=== PATIENT | female | born 1990 | race Caucasian/White ===

== ENCOUNTER 2017-01-17 19:50 | Emergency (ER) | payer MEDICAID, OTHER ==
[~2017-01-17] VITALS: Wt 68.5 kg
[~2017-01-17 19:50] MED LIST: DENIES; PREN1TAB49 BC
--- NOTE | 2017-01-17 21:33 | ERA ---
ER Documentation Chief Complaint Date/Time DATE: 01/17/17 TIME: 21:32 Chief Complaint Body malaise since this morning with chills and nausea HPI 26-year-old female presenting with a chief complaint of dysuria back pain. Patient has been generally feeling unwell for the past 1 day. Patient also complains of chills and mild nausea. Patient denies vomiting, constipation, diarrhea, hematuria, vaginal discharge. Patient has not taken any medications to relieve the symptoms. ROS All systems reviewed and are negative except as per history of present illness. Medications Home Meds Reported Medications Vits W-Ca,Fe,Fa(<1MG) () 1 Tab Tablet, 1 BC 11/14/11 [Denies] No Conflict Check 02/21/11 Allergies Allergies: Coded Allergies: No Known Drug Allergies (Verified Allergy, Mild, 02/21/11) PMhx/Soc History of Surgery: No Anesthesia Reaction: No Hx Neurological Disorder: No Hx Respiratory Disorders: No Hx Cardiac Disorders: No Hx Psychiatric Problems: No Hx Miscellaneous Medical Probl: No Hx Alcohol Use: No Hx Substance Use: No Hx Tobacco Use: No Smoking Status: Never smoker Physical Exam Vitals Vital Signs Date Time Temp Pulse Resp B/P Pulse Ox O2 Delivery O2 Flow Rate FiO2 01/17/17 20:02 100.5 83 20 104/63 98 Physical Exam Const: Well-appearing 26-year-old female Head: Atraumatic Eyes: Normal Conjunctiva ENT: Normal External Ears, Nose and Mouth. Neck: Full range of motion..~ No meningismus. Resp: Clear to auscultation bilaterally Cardio: Regular rate and rhythm, no murmurs Abd: Soft, non tender, non distended. Normal bowel sounds Skin: No petechiae or rashes Back: Mild right-sided CVA tenderness. No midline or flank tenderness Ext: No cyanosis, or edema Neur: Awake and alert Psych: Normal Mood and Affect Results 24 hrs Laboratory Tests Test 01/17/17 21:45 Bedside Urine pH (LAB) 5.0 Bedside Urine Protein (LAB) Negative Bedside Urine Glucose (UA) Negative Bedside Urine Ketones (LAB) Negative Bedside Urine Blood Negative Bedside Urine Nitrite (LAB) Positive Bedside Urine Leukocyte Esterase (L Negative Procedures/MDM Patient is seen for general malaise and chills. Patient also complained of slight back pain on the right side. Patient had a urine dip done which was positive for nitrates. My most likely diagnosis at this time is a lower urinary tract infection. At this time I have little suspicion for pyelonephritis. Patient has been instructed on warning signs and will be given discharge instructions with return precautions. Patient's vitals are stable and appearance is appropriate for discharge. Departure Diagnosis: Primary Impression: Urinary tract infection Qualified Code: N34.2 - Infective urethritis Condition: Stable Additional Instructions: Follow up with your PCP within the next 1-3 days for a more thorough evaluation and a possible referral to a specialist. Return the the emergency department immediately if symptoms worsen or change. If you have any questions regarding medications, ask your pharmacist or us before you leave. If any adverse reactions occur while taking your medications, discontinue the treatment and return to the emergency department immediately. Take your medications as directed, and complete the entire course of treatment. ROYCE BLACKMON PA-C January 17, 2017 21:33
[2017-01-17 21:43] LABS: URINE BLOOD (Dip) POC Negative (NEGATIVE)
[2017-01-17] MEDS ORDERED: ONDANSETRON (ODT) 4 MG TAB ODT STA (21:56)
[2017-01-17] MEDS ORDERED: CEPH-443 PO (21:59)
== END 2017-01-17 22:05 | disposition home or self-care (01) ==
LOC: FTE 19:50
DX: N34.2 Other urethritis (principal); R11.0 Nausea
CPT/HCPCS: 81003; Z7502; Z7610; 99283

== ENCOUNTER 2017-08-22 23:33 | Emergency (ER) | payer MEDICAID, OTHER ==
[~2017-08-22] VITALS: Ht 172.7 cm; Wt 80.0 kg
[~2017-08-22 23:33] MED LIST changes: +CEPH-443 PO
[2017-08-22 23:35] VITALS: Ht 172.7 cm; Wt 80.0 kg
--- NOTE | 2017-08-23 01:34 | ERD ---
ER Documentation Chief Complaint Chief Complaint Pelvic pain, no vag bleed HPI 26-year-old female presents here to emergency department for complaints of pelvic pain that started 4 days ago, more constant and worse today. Patient describes the pain as cramping pain, 4/10 scale, not better or worst with anything. Patient is 3 para 2 0. Patient is approximately 16 weeks . Patient denies any fever or chills. Patient denies any hematuria or dysuria. Patient denies any nausea or vomiting. Patient denies any fevers chills ROS All systems reviewed and are negative except as per history of present illness. Medications Home Meds Active Scripts Cephalexin* (Keflex*) 500 Mg Capsule, 500 MG PO QID for 5 Days, CAP Prov:ROYCE BLACKMON PA-C 01/17/17 Reported Medications Vits W-Ca,Fe,Fa(<1MG) () 1 Tab Tablet, 1 BC 11/14/11 [Denies] No Conflict Check 02/21/11 Allergies Allergies: Coded Allergies: No Known Drug Allergies (Verified Allergy, Mild, 02/21/11) PMhx/Soc Medical and Surgical Hx: pt denies Medical Hx, pt denies Surgical Hx History of Surgery: No Anesthesia Reaction: No Hx Neurological Disorder: No Hx Respiratory Disorders: No Hx Cardiac Disorders: No Hx Psychiatric Problems: No Hx Miscellaneous Medical Probl: No Hx Alcohol Use: No Hx Substance Use: No Hx Tobacco Use: No FmHx Family History: No coronary disease, No diabetes, No other Physical Exam Vitals Vital Signs Date Time Temp Pulse Resp B/P Pulse Ox O2 Delivery O2 Flow Rate FiO2 08/23/17 03:00 98.0 88 16 122/69 98 Room Air 08/22/17 23:35 78.0 78 20 128/61 99 Physical Exam GENERAL: The patient is well developed and appropriate for usual state of health, in no apparent distress. CHEST: Clear to auscultation bilaterally. There are no rales, wheezes or rhonchi. HEART: Regular rate and rhythm. No murmurs, clicks, rubs or gallops. No S3 or S4. ABDOMEN: Soft, nontender and nondistended. Good bowel sounds. No rebound or guarding. No gross peritonitis. No gross organomegaly or masses. No Moeller sign or McBurney point tenderness. BACK: No midline or flank tenderness. EXTREMITIES: Equal pulses bilaterally. There is no peripheral clubbing, cyanosis or edema. No focal swelling or erythema. Full range of motion. Grossly neurovascularly intact. NEURO: Alert and oriented. Cranial nerves 2-12 intact. Motor strength in all 4 extremities with 5/5 strength. Sensation grossly intact. Normal speech and gait. SKIN: There is no apparent rash or petechia. The skin is warm and dry. HEMATOLOGIC AND LYMPHATIC: There is no evidence of excessive bruising or lymphedema. No gross cervical, axillary, or inguinal lymphadenopathy. Result Diagram: 08/23/178 08/23/17237 Results 24 hrs Laboratory Tests Test 08/23/17 02:38 White Blood Count 5.910^3/ul Red Blood Count 3.5510^6/ul Hemoglobin 11.0g/dl Hematocrit 32.8% Mean Corpuscular Volume 92.4fl Mean Corpuscular Hemoglobin 31.0pg Mean Corpuscular Hemoglobin Concent 33.5g/dl Red Cell Distribution Width 14.5% Platelet Count 85994^3/UL Mean Platelet Volume 10.3fl Neutrophils % 53.8% Lymphocytes % 29.3% Monocytes % 11.5% Eosinophils % 3.7% Basophils % 0.5% Nucleated Red Blood Cells % 0.0/100WBC Neutrophils # 3.210^3/ul Lymphocytes # 1.710^3/ul Monocytes # 0.710^3/ul Eosinophils # 0.210^3/ul Basophils # 0.010^3/ul Nucleated Red Blood Cells # 0.010^3/ul Urine Color STRAW Urine Clarity CLEAR Urine pH 6.0 Urine Specific [place] 1.008 Urine Ketones NEGATIVEmg/dL Urine Nitrite NEGATIVEmg/dL Urine Bilirubin NEGATIVEmg/dL Urine Urobilinogen NEGATIVEmg/dL Urine Leukocyte Esterase NEGATIVELeu/ul Urine Hemoglobin NEGATIVEmg/dL Urine Glucose NEGATIVEmg/dL Urine Total Protein NEGATIVEmg/dl Sodium Level 137mmol/L Potassium Level 3.6mmol/L Chloride Level 104mmol/L Carbon Dioxide Level 25mmol/L Anion Gap 12 Blood Urea Nitrogen 10mg/dl Creatinine 0.51mg/dl Glucose Level 89mg/dl Calcium Level 8.6mg/dl Total Bilirubin 0.3mg/dl Direct Bilirubin 0.00mg/dl Indirect Bilirubin 0.3mg/dl Aspartate Amino Transf (AST/SGOT) 22IU/L Alanine Aminotransferase (ALT/SGPT) 33IU/L Alkaline Phosphatase 53IU/L Total Protein 7.3g/dl Albumin 3.5g/dl Globulin 3.80g/dl Albumin/Globulin Ratio 0.92 PROCEDURE: Obstetrical ultrasound, limited. CLINICAL INDICATION: Pelvic pain. TECHNIQUE: Multiple sonographic images of the pelvis were obtained using transabdominal technique. Images were obtained with españa scale and color Doppler. The images were reviewed on a PACS workstation. COMPARISON: No prior studies are available for comparison. FINDINGS: There is a single living intrauterine gestation with the fetus in a variable presentation. heart tones of 144 beats per minute are identified. The placenta is anterior in location, grade 0. There is normal amniotic fluid volume with the maximum vertical pocket measuring 4.2 cm. The cervix is closed measuring 4.9 cm. There is no evidence of placenta previa or abruption. Measurements were made in order to determine age. The results are as follows: BPD = 3.48 cm HC = 12.42 cm AC = 11.25 cm FL = 2.23 cm. Estimated gestational age of approximately 16 weeks and 5 days. The estimated date of delivery is 02/02/2018. The EFW = 170 +/- 26 grams. Estimated weight percentage equals 69.2%. IMPRESSION: Single viable intrauterine gestation of approximately 16 weeks and 5 days, with an ultrasound DAREN of 02/02/2018. .Herberth Lizama MD, MD Date Time Electronically viewed and signed by .Herberth Lizama MD, MD on 08/23/2017 02:35 .T/ CC: [employer]ELTON PARTIDA [employer] Procedures/MDM Medical Decision Making: Patient symptoms of pelvic pain nonspecific at this time, possible musculoskeletal pain, no leukocytosis, no bandemia. Patient is now any fever. Patient is a viable . No urinary tract infection noted. There is low suspicion for abdominal emergencies at this time. Patient s abdominal exam is normal at this time. Patients radiology exam does not show any abdominal emergencies at this time. There is low suspicion for appendicitis , cholecystitis, abdominal aortic aneurysms or peritonitis at this time. There is low suspicion for sepsis. Patient appears well and is hemodynamically stable. Disposition: Home. Condition: Stable Prescription Tylenol Instructions: Patient is advised to take medications as prescribed. Patient is advised to rest, increase fluid intake and do brat diet for next 1-2 days and progress as tolerated. Patient is advised that if symptoms are worse, severe abdominal pain, uncontrolled vomiting, high fever, severe flank pain, worst signs and symptoms, to return to the emergency department immediately. Otherwise, patient can follow up with primary care doctor in 5-7 days. Disclaimer: Inadvertent spelling and grammatical errors are likely due to EHR/ dictation software use and do not reflect on the overall quality of patient care. Also, please note that the electronic time recorded on this note does not necessarily reflect the actual time of the patient encounter. Departure Diagnosis: Primary Impression: Pelvic pain Condition: Stable Patient Instructions: Pelvic Pain In : Unclear (2-3 Trimester) Additional Instructions: Patient is advised to take medications as prescribed. Patient is advised to rest, increase fluid intake and do brat diet for next 1-2 days and progress as tolerated. Patient is advised that if symptoms are worse, severe abdominal pain , uncontrolled vomiting, high fever, severe flank pain, worst signs and symptoms , to return to the emergency department immediately. Otherwise, patient can follow up with primary care doctor in 5-7 days. KELTON PARTIDA NP Aug 23, 2017 01:34
--- NOTE | 2017-08-23 02:36 | RADRPT ---
PROCEDURE: Obstetrical ultrasound, limited. CLINICAL INDICATION: Pelvic pain. TECHNIQUE: Multiple sonographic images of the pelvis were obtained using transabdominal technique . Images were obtained with españa scale and color Doppler. The images were reviewed on a PACS works tation. COMPARISON: No prior studies are available for comparison. FINDINGS: There is a single living intrauterine gestation with the fetus in a variable presentation. he art tones of 144 beats per minute are identified. The placenta is anterior in location, grade 0. T here is normal amniotic fluid volume with the maximum vertical pocket measuring 4.2 cm. The cervix is closed measuring 4.9 cm. There is no evidence of placenta previa or abruption. Measurements were made in order to determine age. The results are as follows: BPD =3.48 cm HC =12.42 cm AC =11.25 cm FL =2.23 cm. Estimated gestational age of approximately 16 weeks and 5 days. The estimated date of delivery is 02/02/2018. The EFW = 170 +/- 26 grams. Estimated weight percentage equals 69.2%. IMPRESSION: Single viable intrauterine gestation of approximately 16 weeks and 5 days, with an ultrasound DAREN of 02/02/2018. .Herberth Lizama MD, MD Date Time Electronically viewed and signed by .Herberth Lizama MD, MD on 08/23/2017 02:35 .T/
[2017-08-23 03:00] VITALS: BP 122/69; PULSE 88; RESP 16; TEMP 98
[2017-08-23 03:11] LABS: BASOPHILS % 0.5 % (0.0-2.0); EOSINOPHILS # 0.2 10^3/ul (0.0-0.5); EOSINOPHILS % 3.7 % (0.0-7.0); HEMATOCRIT 32.8 % (37.0-47.0); LYMPHOCYTES # 1.7 10^3/ul (0.8-2.9); LYMPHOCYTES % 29.3 % (15.0-51.0); MEAN CORPUSCULAR HGB CONC 33.5 g/dl (32.0-37.0); MEAN CORPUSCULAR VOLUME 92.4 fl (82.0-101.0); MEAN PLATELET VOLUME 10.3 fl (7.4-10.4); MONOCYTE # 0.7 10^3/ul (0.3-0.9); MONOCYTES % 11.5 % (0.0-11.0); NEUTROPHIL # 3.2 10^3/ul (1.6-7.5); NEUTROPHILS % 53.8 % (39.0-77.0); PLATELET COUNT 220 10^3/UL (140-415); RED BLOOD COUNT 3.55 10^6/ul (4.20-5.40); RED CELL DISTRIBUTION WIDTH 14.5 % (11.5-14.5); WHITE BLOOD COUNT 5.9 10^3/ul (4.8-10.8)
[2017-08-23 03:19] LABS: ADD UMIC NO; UR ASCORBIC ACID NEGATIVE (NEGATIVE); UR BILIRUBIN (Dip) NEGATIVE (NEGATIVE); UR BLOOD (Dip) NEGATIVE (NEGATIVE); UR CLARITY CLEAR (CLEAR); UR COLOR STRAW (YELLOW); UR GLUCOSE (Dip) NEGATIVE (NEGATIVE); UR KETONES (Dip) NEGATIVE (NEGATIVE); UR LEUKOCYTE ESTERASE (Dip) NEGATIVE Leu/ul (NEGATIVE); UR NITRITE (Dip) NEGATIVE (NEGATIVE); UR SPECIFIC GRAVITY (Dip) 1.008 (1.003-1.030); UR TOTAL PROTEIN (Dip) NEGATIVE (NEGATIVE); UR UROBILINOGEN (Dip) NEGATIVE (NEGATIVE)
[2017-08-23 03:40] LABS: ALBUMIN 3.5 g/dl (3.3-4.9); ALBUMIN/GLOBULIN RATIO 0.92; BILIRUBIN,INDIRECT 0.3 mg/dl (0-1.1); BILIRUBIN,TOTAL 0.3 mg/dl (0.2-1.3); CALCIUM 8.6 mg/dl (8.4-10.2); CREATININE 0.51 mg/dl (0.44-1.00); POTASSIUM 3.6 mmol/L (3.5-5.1); TOTAL PROTEIN 7.3 g/dl (6.1-8.1)
[2017-08-23] MEDS ORDERED: ACET500C5 PO (04:25)
== END 2017-08-23 04:41 | disposition home or self-care (01) ==
LOC: FTE 23:33
DX: O26.892 Other specified pregnancy related conditions, second trimester (principal); R10.2 Pelvic and perineal pain; Z3A.16 16 weeks gestation of pregnancy
CPT/HCPCS: 36415; 76805; 80053; 81003; 85025; 86900; 86901; Z7502

== ENCOUNTER 2018-02-03 13:45 | Inpatient (IN) | END 2018-02-06 15:28 | disposition home or self-care (01) | DRG 775 ==

== ENCOUNTER 2018-05-30 18:03 | Emergency (ER) | END 2018-05-30 21:04 | disposition home or self-care (01) ==

== ENCOUNTER 2018-06-01 15:32 | Emergency (ER) | END 2018-06-01 16:41 | disposition home or self-care (01) ==